=== PATIENT | female | born 1955 | race African-American/Black ===

== ENCOUNTER 2019-03-15 15:44 | Inpatient (IN) | payer OTHER ==
[2019-03-15 18:47] VITALS: BMI 27.8
--- NOTE | 2019-03-15 21:52 | HP ---
CIWA Score - Admission Criteria OASAS Guidelines: Admission for Medically Managed Detox: Requires at least one of the followin. CIWA greater than 12 2. Seizures within the past 24 hours 3. Delirium tremens within the past 24 hours 4. Hallucinations within the past 24 hours 5. Acute intervention needed for co occurring medical disorder 6. Acute intervention needed for co occurring psychiatric disorder 7. Severe withdrawal that cannot be handled at a lower level of care (continued vomiting, continued diarrhea, abnormal vital signs) requiring intravenous medication and/or fluids 8. Admission ROS S - HPI Chief Complaint: Seeking admission to Rehab. Allergies/Adverse Reactions: Allergies Allergy/AdvReac Type Severity Reaction Status Date / Time No Known Allergies Allergy Verified 03/15/19 18:35 History of Present Illness: 63 years old female with a history of alcohol dependence is seeking admission to Rehab. Patient reports that this is her first admission to [facility]. She reports history of hypertension and depression and denies suicide attempt / suicidal ideation at this time. Exam Limitations: No Limitations - Ebola screening Have you traveled outside of the country in the last 21 days: No Have you had contact with anyone from an Ebola affected area: No - Review of Systems Constitutional: No Symptoms Reported EENT: reports: No Symptoms Reported Respiratory: reports: No Symptoms reported Cardiac: reports: No Symptoms Reported GI: reports: No Symptoms Reported : reports: No Symptoms Reported Musculoskeletal: reports: No Symptoms Reported Integumentary: reports: No Symptoms Reported Neuro: reports: No Symptoms reported Endocrine: reports: No Symptoms Reported Hematology: reports: No Symptoms Reported Psychiatric: reports: No Sypmtoms Reported, Mood/Affect Appropiate, Orientated x3 Other Systems: Reviewed and Negative Patient History - Patient Medical History Hx Anemia: No Hx Asthma: No Hx Cancer: No Hx Cardiac Disorders: No Hx Congestive Heart Failure: No Hx Hypertension: Yes (Not on medication) Hx Hypercholesterolemia: No Hx Pacemaker: No HX Cerebrovascular Accident: No Hx Seizures: No Hx Dementia: No Hx Diabetes: No Hx Gastrointestinal Disorders: No Hx Liver Disease: No Hx Genitourinary Disorders: No Hx Sexually Transmitted Disorders: No Hx Renal Disease (ESRD): No Hx Thyroid Disease: No Hx Human Immunodeficiency Virus (HIV): No Hx Hepatitis C: No Hx Depression: No Hx Suicide Attempt: No Hx Bipolar Disorder: No Hx Schizophrenia: No - Patient Surgical History Past Surgical History: Yes Hx Orthopedic Surgery: Yes (Neck, right shoulder and lower extremities) - PPD History Previous Implant?: Yes Documented Results: Negative w/proof - Reproductive History Patient is a Female of Child Bearing Age (11 -55 yrs old): Yes LMP comment: MENOPAUSAL Patient : No - Smoking Cessation Smoking history: Current every day smoker Have you smoked in the past 12 months: Yes Aproximately how many cigarettes per day: 2 Hx Chewing Tobacco Use: No Initiated information on smoking cessation: Yes 'Breaking Loose' booklet given: 03/15/19 - Substance & Tx. History Hx Alcohol Use: Yes Substance Use Type: None, Alcohol, Cocaine Hx Substance Use Treatment: Yes ([facility]) - Substances abused Crack Substance route: Smoking Frequency: No use in 30 days Amount used: 4 bags every 6 months. Age of first use: 31 Date of last use: 03/15/19 Alcohol Substance route: Oral Frequency: No use in 30 days Amount used: only today she drank ' Age of first use: 63 Date of last use: 03/15/19 Admission Physical Exam [facility] - Vital Signs Vital Signs: Vital Signs - 24 hr 03/15/19 18:34 Temperature 98.8 F Pulse Rate 86 Respiratory 20 Rate Blood Pressure 146/82 - Physical General Appearance: Yes: Within Normal Limits HEENTM: Yes: Within Normal Limits, EOMI, Normal ENT Inspection, Normal Voice, MARY Respiratory: Yes: Lungs Clear, Normal Breath Sounds, No Respiratory Distress Neck: Yes: Within Normal Limits Breast: Yes: Breast Exam Deferred Cardiology: Yes: Regular Rhythm, Regular Rate Abdominal: Yes: Within Normal Limits, Normal Bowel Sounds, Soft Genitourinary: Yes: Within Normal Limits Back: Yes: Normal Inspection Musculoskeletal: Yes: Within Normal Limits Extremities: Yes: Within Normal Limits, Normal Inspection Neurological: Yes: Within Normal Limits, Alert, Normal Mood/Affect Integumentary: Yes: Within Normal Limits, Warm Lymphatic: Yes: Within Normal Limits - Diagnostic (1) Alcohol dependence Current Visit: Yes Status: Acute (2) Hypertension Current Visit: Yes Status: Chronic Qualifiers: Hypertension type: unspecified Qualified Code(s): I10 - Essential (primary ) hypertension (3) Depression Current Visit: Yes Status: Chronic Qualifiers: Depression Type: unspecified Qualified Code(s): F32.9 - Major depressive disorder, single episode, unspecified Cleared for Admission S - Detox or Rehab [facility] Level of Care: Observation Bed Claeared for Rehab Admission: Yes Breathalyzer - Breathalyzer Breathalyzer: 0 Urine Drug Screen - Test Device Lot number: [id number] Expiration date: 11/08/20 - Control Is test valid?: Yes - Results Drug screen NEGATIVE: No Urine drug screen results: [place]-Cocaine Inpatient Rehab Admission - Rehab Decision to Admit Inpatient rehab admission?: Yes - Initial Determination Are CD services needed?: Yes Free of communicable disease: Yes Not in need of hospitalization: Yes - Rehab Admission Criteria Previous failed treatment: Yes Poor recovery environment: Yes Comorbidities: Yes Lacks judgement: No Patient is meeting Inpatient Rehab admission criteria:: Yes
[2019-03-15] MEDS ORDERED: ACETAMINOPHEN 325 MG TABLET (FP) PO PRN (22:06)
[2019-03-15] MEDS ORDERED: guaiFENesin 200 MG/10 ML 10 ML UNIT-DOSE CUPS PO PRN (22:06)
[2019-03-15] MEDS ORDERED: MENTHOL/PHENOL 1 EACH UD MM PRN (22:06)
[2019-03-15] MEDS ORDERED: P-EPHED 60MG/TRIPROLIDI 2.5MG TABLET PO PRN (22:06)
[2019-03-15] MEDS ORDERED: LOPERAMIDE HCL 2 MG CAPSULE PO PRN (22:06)
[2019-03-15] MEDS ORDERED: NICOTINE POLACRILEX 2 MG GUM BUC PRN (22:06)
[2019-03-15] MEDS ORDERED: IBUPROFEN 400 MG TABLET (FP) PO PRN (22:06)
[2019-03-15] MEDS ORDERED: MAG HYDROX/AL HYDROX/SIMETH 30 ML UNIT-DOSE CUP PO PRN (22:06)
[2019-03-15] MEDS ORDERED: MAGNESIUM CITRATE 300 ML BOTTLE PO PRN (22:06)
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
[2019-03-16 09:38] LABS: HEMATOCRIT 40.6 % (32.4-45.2); HEMOGLOBIN 13.8 GM/dL (10.7-15.3); MCH 35.4 pg (25.7-33.7); MCHC 33.9 g/dl (32.0-36.0); MEAN CELL VOLUME 104.3 fl (80-96); MEAN PLT VOLUME 8.2 fl (7.5-11.1); PLATELET COUNT 171 K/MM3 (134-434); RBC 3.89 M/mm3 (3.60-5.2); RDW 13.2 % (11.6-15.6); WHITE BLOOD COUNT 5.7 K/mm3 (4.0-10.0)
[2019-03-16 10:06] LABS: ALBUMIN 2.6 g/dl (3.4-5.0); BILIRUBIN,TOTAL 0.2 mg/dL (0.2-1); BLOOD UREA NITROGEN 15.1 mg/dL (7-18); CALCIUM 8.6 mg/dL (8.5-10.1); CREATININE 0.8 mg/dL (0.55-1.3); POTASSIUM 4.2 mmol/L (3.5-5.1); TOT PROT 5.2 g/dl (6.4-8.2)
[2019-03-16] MEDS: PRENATAL VITAMINS W/ FOLIC ACID TABLET (FP) PO SCH (11:35)
[2019-03-16] MEDS: NICOTINE 14 MG/24 HOURS TOPICAL PATCH TD SCH (11:35)
[2019-03-16 17:54] LABS: PH,URINE 6.5 (5.0-8.0); URINE APPEARANCE CLEAR; URINE BILIRUBIN NEGATIVE (NEGATIVE); URINE COLOR YELLOW; URINE GLUCOSE (UA) NEGATIVE (NEGATIVE); URINE KETONE NEGATIVE (NEGATIVE); URINE LEUK ESTERASE NEGATIVE (NEGATIVE); URINE NITRITE NEGATIVE (NEGATIVE); URINE PROTEIN NEGATIVE (NEGATIVE)
[2019-03-16] MEDS: MELATONIN 5 MG TABLETS PO PRN (21:23)
[2019-03-16] MEDS: THIAMINE HCL 100 MG TABLET (FP) PO SCH (21:23)
[2019-03-16] MEDS ORDERED: DIVALPROEX NA *ER* EXTEND REL 500 MG TABLET.SA (FP) PO PRN (22:00)
[2019-03-17] MEDS: NICOTINE 14 MG/24 HOURS TOPICAL PATCH TD SCH (10:23)
[2019-03-17] MEDS: PRENATAL VITAMINS W/ FOLIC ACID TABLET (FP) PO SCH (10:40)
[2019-03-17] MEDS: THIAMINE HCL 100 MG TABLET (FP) PO SCH (21:18)
[2019-03-17] MEDS: MELATONIN 5 MG TABLETS PO PRN (21:18)
[2019-03-18] MEDS: PRENATAL VITAMINS W/ FOLIC ACID TABLET (FP) PO SCH (11:43)
[2019-03-18] MEDS: NICOTINE 14 MG/24 HOURS TOPICAL PATCH TD SCH (11:43)
--- NOTE | 2019-03-18 12:30 | PN ---
[facility] Progress Note Note: Vital Signs Temperature 97.5 F L 03/18/19 07:06 Pulse Rate 54 L 03/18/19 07:06 Respiratory Rate 18 03/18/19 07:06 Blood Pressure 145/84 03/18/19 07:06 O2 Sat by Pulse Oximetry (%) Laboratory Last Values WBC 5.7 K/mm3 (4.0-10.0) 03/16/19 08:00 RBC 3.89 M/mm3 (3.60-5.2) 03/16/19 08:00 Hgb 13.8 GM/dL (10.7-15.3) 03/16/19 08:00 Hct 40.6 % (32.4-45.2) 03/16/19 08:00 MCV 104.3 fl (80-96) H 03/16/19 08:00 MCH 35.4 pg (25.7-33.7) H 03/16/19 08:00 MCHC 33.9 g/dl (32.0-36.0) 03/16/19 08:00 RDW 13.2 % (11.6-15.6) 03/16/19 08:00 Plt Count 171 K/MM3 (134-434) 03/16/19 08:00 MPV 8.2 fl (7.5-11.1) 03/16/19 08:00 Sodium 142 mmol/L (136-145) 03/16/19 08:00 Potassium 4.2 mmol/L (3.5-5.1) 03/16/19 08:00 Chloride 109 mmol/L (98-107) H 03/16/19 08:00 Carbon Dioxide 31 mmol/L (21-32) 03/16/19 08:00 Anion Gap 2 MMOL/L (8-16) L 03/16/19 08:00 BUN 15.1 mg/dL (7-18) 03/16/19 08:00 Creatinine 0.8 mg/dL (0.55-1.3) 03/16/19 08:00 Est GFR (CKD-EPI)AfAm 91.58 03/16/19 08:00 Est GFR (CKD-EPI)NonAf 79.01 03/16/19 08:00 Random Glucose 87 mg/dL (74-106) 03/16/19 08:00 Calcium 8.6 mg/dL (8.5-10.1) 03/16/19 08:00 Total Bilirubin 0.2 mg/dL (0.2-1) 03/16/19 08:00 AST 9 U/L (15-37) L 03/16/19 08:00 ALT 12 U/L (13-61) L 03/16/19 08:00 Alkaline Phosphatase 56 U/L (45-117) 03/16/19 08:00 Total Protein 5.2 g/dl (6.4-8.2) L 03/16/19 08:00 Albumin 2.6 g/dl (3.4-5.0) L 03/16/19 08:00 Urine Color Yellow 03/16/19 14:30 Urine Appearance Clear 03/16/19 14:30 Urine pH 6.5 (5.0-8.0) 03/16/19 14:30 Ur Specific [place] 1.022 (1.010-1.035) 03/16/19 14:30 Urine Protein Negative (NEGATIVE) 03/16/19 14:30 Urine Glucose (UA) Negative (NEGATIVE) 03/16/19 14:30 Urine Ketones Negative (NEGATIVE) 03/16/19 14:30 Urine Blood Negative (NEGATIVE) 03/16/19 14:30 Urine Nitrite Negative (NEGATIVE) 03/16/19 14:30 Urine Bilirubin Negative (NEGATIVE) 03/16/19 14:30 Urine Urobilinogen 1.0 mg/dL (0.2-1.0) 03/16/19 14:30 Ur Leukocyte Esterase Negative (NEGATIVE) 03/16/19 14:30 RPR Titer Nonreactive (NONREACTIVE) 03/16/19 08:00 labs reviewed continue to monitor
[2019-03-18] MEDS: MELATONIN 5 MG TABLETS PO PRN (21:20)
[2019-03-18] MEDS: THIAMINE HCL 100 MG TABLET (FP) PO SCH (21:20)
[2019-03-19] MEDS: PRENATAL VITAMINS W/ FOLIC ACID TABLET (FP) PO SCH (10:49)
[2019-03-19] MEDS: NICOTINE 14 MG/24 HOURS TOPICAL PATCH TD SCH (10:50)
[2019-03-19] MEDS: MELATONIN 5 MG TABLETS PO PRN (21:22)
[2019-03-19] MEDS: THIAMINE HCL 100 MG TABLET (FP) PO SCH (21:22)
[2019-03-20] MEDS: NICOTINE 14 MG/24 HOURS TOPICAL PATCH TD SCH (10:56)
[2019-03-20] MEDS: PRENATAL VITAMINS W/ FOLIC ACID TABLET (FP) PO SCH (10:56)
[2019-03-20] MEDS: THIAMINE HCL 100 MG TABLET (FP) PO SCH (21:28)
[2019-03-20] MEDS: MELATONIN 5 MG TABLETS PO PRN (21:29)
[2019-03-20] MEDS ORDERED: PT OWN MED DRAWER 7, Y5N ONE (23:00)
[2019-03-21] MEDS: PRENATAL VITAMINS W/ FOLIC ACID TABLET (FP) PO SCH (10:20)
[2019-03-21] MEDS: NICOTINE 14 MG/24 HOURS TOPICAL PATCH TD SCH (10:20)
[2019-03-21] MEDS: MAGNESIUM HYDROX 2400MG/30ML ORAL SUSPENSION 30 ML CUP PO PRN (13:53)
[2019-03-21] MEDS: THIAMINE HCL 100 MG TABLET (FP) PO SCH (21:22)
[2019-03-21] MEDS: DIVALPROEX NA *ER* EXTEND REL 500 MG TABLET.SA (FP) PO SCH (21:23)
[2019-03-21] MEDS ORDERED: PT OWN MED DRAWER 7, Y5N ONE (22:40)
[2019-03-22] MEDS ORDERED: PT OWN MED DRAWER 7, Y5N ONE (07:43)
[2019-03-22] MEDS: PRENATAL VITAMINS W/ FOLIC ACID TABLET (FP) PO SCH (10:12)
[2019-03-22] MEDS: NICOTINE 14 MG/24 HOURS TOPICAL PATCH TD SCH (10:12)
[2019-03-22] MEDS: THIAMINE HCL 100 MG TABLET (FP) PO SCH (21:15)
[2019-03-22] MEDS: MELATONIN 5 MG TABLETS PO PRN (21:16)
[2019-03-22] MEDS: DIVALPROEX NA *ER* EXTEND REL 500 MG TABLET.SA (FP) PO SCH (21:17)
[2019-03-23] MEDS: PRENATAL VITAMINS W/ FOLIC ACID TABLET (FP) PO SCH (10:25)
[2019-03-23] MEDS: NICOTINE 14 MG/24 HOURS TOPICAL PATCH TD SCH (10:25)
--- NOTE | 2019-03-23 10:38 | PN ---
Psychiatric Progress Note Vital Signs: Vital Signs Period Temp Pulse Resp BP Sys/Johnson Pulse Ox Last 24 Hr 18-18 Date of Session: 03/23/19 Chief Complaint:: Patient due for invega sustenna 156mg/ml HPI: Patient admitted to [facility] for alcohol and cocaine dependence. ROS: Patient is fatigue and currently laying in bed. Patient is alert + oriented X3. Current Medications: Active Medications Generic Name Dose Route Start Last Admin Trade Name Freq PRN Reason Stop Dose Admin Acetaminophen 650 mg 03/15/19 22:06 Tylenol - PO Q4H PRN FEVER Al Hydroxide/Mg Hydroxide 30 ml 03/15/19 22:06 Mylanta Oral Suspension - PO Q6H PRN DYSPEPSIA Divalproex Sodium 2,000 mg 03/21/19 22:00 03/22/19 21:17 Depakote *Er* - PO 2,000 mg HS NAUN Administration Eucalyptus/Menthol/Phenol/Sorbitol 1 each 03/15/19 22:06 Cepastat Lozenge - MM Q4H PRN SORE THROAT Guaifenesin 10 ml 03/15/19 22:06 Robitussin - PO Q6H PRN COUGH Ibuprofen 400 mg 03/15/19 22:06 Motrin - PO Q6H PRN Pain level 4-6 Loperamide HCl 4 mg 03/15/19 22:06 Imodium - PO Q6H PRN DIARRHEA Magnesium Citrate 300 ml 03/15/19 22:06 Citroma - PO Q48H PRN CONSTIPATION Magnesium Hydroxide 30 ml 03/15/19 22:06 03/21/19 13:53 Milk Of Magnesia - PO 30 ml DAILY PRN Administration CONSTIPATION Melatonin 5 mg 03/15/19 22:00 03/22/19 21:16 Melatonin PO 5 mg HS PRN Administration INSOMNIA Nicotine 14 mg 03/16/19 10:00 03/22/19 10:12 Nicoderm Patch - TD Not Given DAILY [facility] Nicotine Polacrilex 2 mg 03/15/19 22:06 Nicorette Gum - BUC Q2H PRN NICOTINE REPLACEMENT RX Multivit/Folic Acid/Iron 1 tab 03/16/19 10:00 03/22/19 10:12 Vitamins (Sjr) - PO Not Given DAILY NAUN Pseudoephedrine/Triprolidine 1 combo 03/15/19 22:06 Actifed - PO TID PRN NASAL CONGESTION Thiamine HCl 100 mg 03/16/19 22:00 03/22/19 21:15 Vitamin B1 - PO 100 mg HS NAUN Administration Medication(s) Change(s): Pending Invega Sustenna 156mg/ml Current Side Effect: No Lab tests ordered: No Lab tests reviewed: Yes Provider note:: Patient seen by Dr. Earl. Dr. Earl's note read and appreciated. Fax sent to [facility] from patient's SRO stating patient is due for Invega Sustenna 156mg/ml on 03/22/10. Case discussed with Dr. Earl. SRO contacted at but unable to speak to counselor/case hardener. Assistant Infant Toddler Teacher able to contact [facility] at extenstion [phone] and able to speak to the pharmacy staff. As per [facility] the Invega Sustenna prescription was received and filled on 03/17/19 but the prescription had to be reversed to [facility] pharmacy. Assistant Infant Toddler Teacher able to contact [facility] pharmacy @ [phone] and able to speak [facility]. As per [facility] pharmacy has a contract with [facility] and therefore requested the Invega Sustenna prescription be reversed from [facility] to [facility]. Assistant Infant Toddler Teacher informed [facility] pharmacy that patient is in rehab and was due for the Invega Sustenna on 03/22/19. Assistant Infant Toddler Teacher was informed to contact Dr. Latoya Alford at [phone] so that he can give consent for prescription to be sent to [facility] again. Write able to contact and speak to Dr. Latoya Alford concerning current situation. He stated to publications writer that he will speak to the pharmacist at [facility] so that the Invega Sustenna can be electronically sent to [facility]. [facility] pharmacy was then able to get in contact with Dr. Alford who asked for prescription be sent to [facility] again. Assistant Infant Toddler Teacher able to speak MrBrittani Segundo at [facility] who stated that Dr. Alford called in the Invega Sustenna 156mg/ml. [facility] will contact [facility] tomorrow as they do not currently have the Invega Sustenna available. As per Mr. Meet at [facility], the medication will be available tomorrow morning for pickup. Dr. Earl and DAMIAN Schaefer made aware. Patient present as fatigue but cooperative, alert + oriented X3. Patient denies auditory/visual hallucinations, suicidal/homicidal ideation. No psychosis noted. Patient scheduled to receive Invega Sustenna 156mg/ml tomorrow (03/24/19) . Patient in agreement in receiving Invega Sustenna. Total face to face time:: 25 Mental Status Exam - Mental Status Exam Alert and Oriented to: Time, Place, Person Cognitive Function: Good Patient Appearance: Well Groomed Mood: Withdrawn Affect: Mood Congruent Patient Behavior: Fatigued Speech Pattern: Clear Voice Loudness: Moderately Soft/Quiet Thought Process: Goal Oriented Thought Disorder: Not Present Hallucinations: Denies Suicidal Ideation: Denies Homicidal Ideation: Denies Insight/Judgement: Poor Sleep: Fair Appetite: Fair Muscle strength/Tone: Normal Gait/Station: Other (Write unable to assess) Psychiatric Treatment Plan - Problem List (1) Alcohol dependence Current Visit: Yes (2) Cocaine abuse Current Visit: Yes (3) Schizoaffective disorder Current Visit: Yes (4) Nicotine dependence Current Visit: Yes
[2019-03-23] MEDS: DIVALPROEX NA *ER* EXTEND REL 500 MG TABLET.SA (FP) PO SCH (21:01)
[2019-03-23] MEDS ORDERED: PT OWN MED DRAWER 7, Y5N ONE (21:01)
[2019-03-23] MEDS: THIAMINE HCL 100 MG TABLET (FP) PO SCH (21:01)
[2019-03-24] MEDS: NICOTINE 14 MG/24 HOURS TOPICAL PATCH TD SCH (09:10)
[2019-03-24] MEDS: PRENATAL VITAMINS W/ FOLIC ACID TABLET (FP) PO SCH (09:10)
--- NOTE | 2019-03-24 10:28 | PN ---
[facility] Progress Note Note: Patient will receives Invega Sustenna 156 mg IM today after pharmacy verification. Depakote 2000 mg/hs will placed on hold because patient is very lethargic
[2019-03-24] MEDS ORDERED: PALIPERIDONE PALMITATE 156 MG IM SCH (11:15)
[2019-03-24] MEDS: THIAMINE HCL 100 MG TABLET (FP) PO SCH (21:45)
[2019-03-25] MEDS: NICOTINE 14 MG/24 HOURS TOPICAL PATCH TD SCH (09:42)
[2019-03-25] MEDS: PRENATAL VITAMINS W/ FOLIC ACID TABLET (FP) PO SCH (09:42)
[2019-03-25] MEDS: MAGNESIUM HYDROX 2400MG/30ML ORAL SUSPENSION 30 ML CUP PO PRN (13:25)
--- NOTE | 2019-03-25 14:28 | PN ---
[facility] Progress Note (SOAP) Subjective: Patient to be discharged tomorrow, March 26. PMHx: 63 years old female with a history of alcohol dependence. Patient reports that this is her first admission to [facility]. She reports history of hypertension and depression and denies suicide attempt / suicidal ideation at this time. HOSPITAL COURSE: Patient attended groups, has 1:1 session with her counselor, was seen by the psychiatric service, and was adherent to her treatment plan and medication regimen. She had not acute or emergent medical problems while in rehab. Objective: Physical General Appearance: No apparent distress HEENTM: Yes: Within Normal Limits, EOMI, Normal ENT Inspection, Normal Voice, MARY Respiratory: Yes: Lungs Clear, Normal Breath Sounds, No Respiratory Distress Neck: Yes: Within Normal Limits Breast: Yes: Breast Exam Deferred Cardiology: Yes: Regular Rhythm, Regular Rate Abdominal: Yes: Within Normal Limits, Normal Bowel Sounds, Soft Genitourinary: Yes: Within Normal Limits Back: Yes: Normal Inspection Musculoskeletal: Yes: Within Normal Limits Extremities: Yes: Within Normal Limits, Normal Inspection Neurological: Yes: Within Normal Limits, Alert, Normal Mood/Affect Integumentary: Yes: Within Normal Limits, Warm Lymphatic: Yes: Within Normal Limits 03/25/19 14:31 Assessment: medically stable for discharge 03/25/19 15:55 Plan: Discharge order place. No prescriptions needed. Patient will attend 12 step program.
[2019-03-25] MEDS ORDERED: PT OWN MED DRAWER 7, Y5N ONE (15:58)
[2019-03-25] MEDS: THIAMINE HCL 100 MG TABLET (FP) PO SCH (21:27)
[2019-03-25] MEDS: MELATONIN 5 MG TABLETS PO PRN (21:27)
[2019-03-26 07:34] VITALS: BP 145/79; PULSE 60; TEMP 97.7
--- NOTE | 2019-03-26 09:10 | DS ---
[facility] Rehab Discharge Summary - [facility] Rehab Discharge Summary Admission Date: 03/15/19 Discharge Date: 03/26/19 - History Present History: Alcohol dependence, Cocaine dependence Additional Comments: Pt is a 63 y/o female admitted to rehab with a hx of NAVEEN and discharged today as scheduled in good condition. Pertinent Past History: Hypertension(no meds) Schizoaffective disorder - Discharge Physical Exam Vital Signs: Vital Signs Temperature 97.7 F 03/26/19 07:34 Pulse Rate 60 03/26/19 07:34 Respiratory Rate 18 03/26/19 07:34 Blood Pressure 145/79 03/26/19 07:34 O2 Sat by Pulse Oximetry (%) Alert o x 3 nad oob ambulating with steady gait. cardiac:s1 s2, rrr lung:cta,hawa. abdomen:soft,+bs,nt,nd extremeties/skin:no edema,full ROM,skin intact Pertinent Admission Physical Exam Findings: Laboratory Tests 03/16/19 03/16/19 03/16/19 08:00 08:00 08:00 WBC 5.7 RBC 3.89 Hgb 13.8 Hct 40.6 MCV 104.3 H MCH 35.4 H MCHC 33.9 RDW 13.2 Plt Count 171 MPV 8.2 Sodium 142 Potassium 4.2 Chloride 109 H Carbon Dioxide 31 Anion Gap 2 L BUN 15.1 Creatinine 0.8 Est GFR (CKD-EPI)AfAm 91.58 Est GFR (CKD-EPI)NonAf 79.01 Random Glucose 87 Calcium 8.6 Total Bilirubin 0.2 AST 9 L ALT 12 L Alkaline Phosphatase 56 Total Protein 5.2 L Albumin 2.6 L Urine Color Urine Appearance Urine pH Ur Specific [place] Urine Protein Urine Glucose (UA) Urine Ketones Urine Blood Urine Nitrite Urine Bilirubin Urine Urobilinogen Ur Leukocyte Esterase Valproic Acid RPR Titer Nonreactive 03/16/19 03/24/19 14:30 13:30 WBC RBC Hgb Hct MCV MCH MCHC RDW Plt Count MPV Sodium Potassium Chloride Carbon Dioxide Anion Gap BUN Creatinine Est GFR (CKD-EPI)AfAm Est GFR (CKD-EPI)NonAf Random Glucose Calcium Total Bilirubin AST ALT Alkaline Phosphatase Total Protein Albumin Urine Color Yellow Urine Appearance Clear Urine pH 6.5 Ur Specific [place] 1.022 Urine Protein Negative Urine Glucose (UA) Negative Urine Ketones Negative Urine Blood Negative Urine Nitrite Negative Urine Bilirubin Negative Urine Urobilinogen 1.0 Ur Leukocyte Esterase Negative Valproic Acid 102.5 H RPR Titer - Treatment Discharge Condition: Discharge condition good - Medication-Assisted Treatment (MAT) Medication-Assisted Treatment (MAT): No - Discharge Instructions Diet, activity, other medical instructions: Diet:Regular Activity: oob ad cristhian Other medical instructions:follow up with primary care at [facility] within 1 week after discharge. Follow up with CD aftercare recommendation as scheduled. - Diagnosis (1) Alcohol dependence Status: Chronic Qualifiers: Substance use status: uncomplicated Qualified Code(s): F10.20 - Alcohol dependence, uncomplicated (2) Hypertension Status: Chronic Qualifiers: Hypertension type: unspecified Qualified Code(s): I10 - Essential (primary ) hypertension (3) Nicotine dependence Status: Chronic Qualifiers: Nicotine product type: cigarettes Substance use status: uncomplicated Qualified Code(s): F17.210 - Nicotine dependence, cigarettes, uncomplicated (4) Schizoaffective disorder Status: Chronic - Follow-up Referral Minutes to complete discharge: 20 - AMA Did Patient Leave Against Medical Advice: No Additional Comments: No Rx needed. Pt received last dose of Invega 156 mg IM here per psych MD order on 03/24/19. To follow up with his psychiatric provider after discharge.
== END 2019-03-26 09:45 | disposition home or self-care (01) | DRG 895 ==
LOC: YASAS 15:44 → Y3W 23:10 → Y3E 03-20 19:45
PROVIDERS: ADMIT Neuromusculoskeletal Medicine & OMM; ATTEND Neuromusculoskeletal Medicine & OMM
PROC: HZ42ZZZ Group Counseling for Substance Abuse Treatment, Cognitive-Behavioral (ICD-10-PCS; principal; 2019-03-15)
DX: F10.20 Alcohol dependence, uncomplicated (principal); F14.20 Cocaine dependence, uncomplicated; F19.280 Other psychoactive substance dependence with psychoactive substance-induced anxiety disorder; F17.210 Nicotine dependence, cigarettes, uncomplicated; F25.9 Schizoaffective disorder, unspecified; F32.9 Major depressive disorder, single episode, unspecified; I10 Essential (primary) hypertension
CPT/HCPCS: 36415; 80053; 80164; 81003; 85027; 86593